=== PATIENT | female | born 1960 | race Caucasian/White ===

== ENCOUNTER → 2016-10-02 | Outpatient (CLI) | payer BC ==
[2016-10-02 06:40] LABS: BASOPHILS % 0.9 % (0.0-2.0); DIFFERENTIAL COMMENT 0; EOSINOPHILS % 2.1 % (0.0-5.0); HEMOGLOBIN. 13.7 g/dL (12.0-16.0); MEAN CORPUSCULAR HEMOGLOBIN 26.1 pg (28.0-32.0); MEAN CORPUSCULAR HGB CONC 33.5 g/dL (31.0-37.0); MEAN CORPUSCULAR VOLUME 77.8 fL (81.0-99.0); MEAN PLATELET VOLUME 7.8 fl (7.4-10.4); PLATELET 296 x1000/uL (130-400); RED BLOOD CELL COUNT 5.27 mill/uL (4.2-5.4); RED CELL DISTRIBUTION WIDTH 14.6 % (11.6-14.6)
[2016-10-02 06:48] LABS: CLARITY URINE CLEAR (CLEAR); COLOR URINE YELLOW (YELLOW); GLUCOSE URINE 3+ (NEGATIVE); KETONES URINE TRACE (NEGATIVE); LEUKOCYTE ESTERASE URINE 2+ (NEGATIVE); NITRITE URINE NEGATIVE (NEGATIVE); OCCULT BLOOD URINE NEGATIVE (NEGATIVE); PH URINE 6.5 (4.5-8.0); PROTEIN URINE TRACE (NEGATIVE); SPECIFIC GRAVITY URINE 1.023 (1.005-1.030); UROBILINOGEN URINE 0.2 E.U./dL (0.2-1.0)
[2016-10-02 07:20] LABS: SQUAMOUS EPITHELIAL CELL URINE FEW /lpf (RARE/1+)
[2016-10-02 07:21] LABS: RBC URINE 0-2 /hpf (0-2)
[2016-10-02 07:22] LABS: BACTERIA URINE 1+
[2016-10-02 07:24] LABS: CHLORIDE 100 mEq/L (98-107); INDEX HEMOLYSI 1 (1-3); INDEX ICTERIC 1 (1-4); INDEX LIPEMIC 1 (1-3)
[2016-10-02 07:46] LABS: ALANINE AMINOTRANSFERASE 35 IU/L (13-61); ALBUMIN 3.4 g/dL (3.4-5.0); ANION GAP 16; BILIRUBIN DIRECT < 0.1 mg/dL (0.0-0.2); CALCIUM 8.3 mg/dL (8.5-10.1); CARBON DIOXIDE 28 mEq/L (21-32); HDL CHOLESTEROL 48 mg/dL (40-59); LDL CHOLESTEROL 153 mg/dL (5-100); TRIGLYCERIDE 194 mg/dL (0-150); UREA NITROGEN BLOOD 8 mg/dL (7-21); eGFR > 60 mL/min (>60)
[2016-10-03 19:40] LABS: *CREATININE RANDOM URINE 57.1 mg/dL (Not Estab.); MICROALBUMIN RANDOM URINE 56.4 ug/mL (Not Estab.); MICROALBUMIN/CREATININE RATIO 98.8 mg/g creat (0.0-30.0)
== END | disposition home or self-care (01) ==
LOC: LAB 09:00
PROVIDERS: ATTEND Internal Medicine
DX: I10 Essential (primary) hypertension (principal); E78.5 Hyperlipidemia, unspecified; E11.9 Type 2 diabetes mellitus without complications; G47.33 Obstructive sleep apnea (adult) (pediatric); E66.9 Obesity, unspecified
CPT/HCPCS: 36415; 80053; 80061; 80076; 81001; 82043; 82248; 82570; 85025; 85651

== ENCOUNTER → 2016-10-21 | Outpatient (CLI) | payer BC | END | disposition home or self-care (01) | LOC: LAB 06:35 | PROVIDERS: ATTEND Internal Medicine | DX: E11.9 Type 2 diabetes mellitus without complications (principal) | CPT/HCPCS: 83036 ==

== ENCOUNTER → 2017-01-22 | Outpatient (CLI) | payer BC ==
[2017-01-22 06:57] LABS: CLARITY URINE CLEAR (CLEAR); COLOR URINE YELLOW (YELLOW); GLUCOSE URINE 3+ (NEGATIVE); KETONES URINE 1+ (NEGATIVE); LEUKOCYTE ESTERASE URINE 2+ (NEGATIVE); NITRITE URINE POSITIVE (NEGATIVE); OCCULT BLOOD URINE TRACE (NEGATIVE); PROTEIN URINE NEGATIVE (NEGATIVE); SPECIFIC GRAVITY URINE 1.022 (1.005-1.030); UROBILINOGEN URINE 0.2 E.U./dL (0.2-1.0)
[2017-01-22 07:43] LABS: CARBON DIOXIDE 27 mEq/L (21-32); CHLORIDE 100 mEq/L (98-107)
[2017-01-22 07:44] LABS: HDL CHOLESTEROL 42 mg/dL (40-59); LDL CHOLESTEROL 156 mg/dL (5-100)
[2017-01-23 13:07] LABS: MICROALBUMIN RANDOM URINE 48.5 ug/mL (Not Estab.); MICROALBUMIN/CREATININE RATIO 91.5 mg/g creat (0.0-30.0)
== END | disposition home or self-care (01) ==
LOC: LAB 06:24
PROVIDERS: ATTEND Internal Medicine
DX: I10 Essential (primary) hypertension (principal); E11.9 Type 2 diabetes mellitus without complications; E78.5 Hyperlipidemia, unspecified; R07.89 Other chest pain
CPT/HCPCS: 36415; 80053; 80061; 81001; 82043; 82270; 82570; 83036

== ENCOUNTER → 2017-07-06 | Outpatient (CLI) | payer BC | END | disposition home or self-care (01) | LOC: MAMMO 06:48 | PROVIDERS: ATTEND Internal Medicine | DX: Z12.31 Encounter for screening mammogram for malignant neoplasm of breast (principal) | CPT/HCPCS: G0202 ==

== ENCOUNTER → 2017-07-19 | Outpatient (CLI) | payer BC ==
[2017-07-19 08:03] LABS: KETONES URINE NEGATIVE (NEGATIVE); LEUKOCYTE ESTERASE URINE 1+ (NEGATIVE); NITRITE URINE POSITIVE (NEGATIVE); OCCULT BLOOD URINE NEGATIVE (NEGATIVE); PH URINE 6.5 (4.5-8.0); PROTEIN URINE 2+ (NEGATIVE); SPECIFIC GRAVITY URINE 1.021 (1.005-1.030); UROBILINOGEN URINE 0.2 E.U./dL (0.2-1.0)
[2017-07-19 08:04] LABS: CLARITY URINE HAZY (CLEAR)
[2017-07-19 08:17] LABS: BASOPHILS % 0.3 % (0.0-2.0); EOSINOPHILS % 1.3 % (0.0-5.0); HEMATOCRIT. 41.7 % (36.0-48.0); HEMOGLOBIN. 13.7 g/dL (12.0-16.0); MEAN CORPUSCULAR HEMOGLOBIN 25.2 pg (28.0-32.0); MEAN CORPUSCULAR VOLUME 76.6 fL (81.0-99.0); MEAN PLATELET VOLUME 8.4 fl (7.4-10.4); MONOCYTES % 5.2 % (2.0-8.0); NEUTROPHILS % 61.2 % (40.0-76.0); PLATELET 235 x1000/uL (130-400); RED BLOOD CELL COUNT 5.45 mill/uL (4.2-5.4); RED CELL DISTRIBUTION WIDTH 14.4 % (11.6-14.6)
[2017-07-19 08:23] LABS: CHLORIDE 102 mEq/L (98-107)
[2017-07-19 08:31] LABS: COLOR URINE YELLOW (YELLOW)
[2017-07-19 08:58] LABS: CARBON DIOXIDE 25 mEq/L (21-32); HDL CHOLESTEROL 36 mg/dL (40-59); LDL CHOLESTEROL 127 mg/dL (5-100); T4 FREE 1.37 ng/dL (0.76-1.46)
[2017-07-19 09:40] LABS: VITAMIN B12 SERUM 551 pg/mL (211-911)
[2017-07-21 13:11] LABS: MICROALBUMIN RANDOM URINE 500.1 ug/mL (Not Estab.)
== END | disposition home or self-care (01) ==
LOC: LAB 07:15
PROVIDERS: ATTEND Internal Medicine
DX: E11.65 Type 2 diabetes mellitus with hyperglycemia (principal); I10 Essential (primary) hypertension; E78.5 Hyperlipidemia, unspecified; G47.33 Obstructive sleep apnea (adult) (pediatric); M79.671 Pain in right foot; R10.9 Unspecified abdominal pain; E53.9 Vitamin B deficiency, unspecified; E55.9 Vitamin D deficiency, unspecified
CPT/HCPCS: 36415; 80053; 80061; 81001; 82043; 82306; 82570; 82607; 83036; 84439; 84443; 84481; 84550; 85025

== ENCOUNTER → 2018-04-07 | Outpatient (CLI) | payer BC ==
[2018-04-07 07:46] LABS: CLARITY URINE CLEAR (CLEAR); COLOR URINE YELLOW (YELLOW); KETONES URINE TRACE (NEGATIVE); LEUKOCYTE ESTERASE URINE TRACE (NEGATIVE); NITRITE URINE POSITIVE (NEGATIVE); OCCULT BLOOD URINE TRACE (NEGATIVE); PH URINE 5.5 (4.5-8.0); PROTEIN URINE 1+ (NEGATIVE); SPECIFIC GRAVITY URINE 1.017 (1.005-1.030); UROBILINOGEN URINE 0.2 E.U./dL (0.2-1.0)
[2018-04-07 07:48] LABS: CHLORIDE 101 mEq/L (98-107)
[2018-04-07 08:03] LABS: BASOPHILS % 0.7 % (0.0-2.0); EOSINOPHILS % 1.8 % (0.0-5.0); HEMATOCRIT. 41.2 % (36.0-48.0); HEMOGLOBIN. 13.8 g/dL (12.0-16.0); LYMPHOCYTES % 25.9 % (20.0-50.0); MEAN CORPUSCULAR HEMOGLOBIN 26.8 pg (28.0-32.0); MEAN CORPUSCULAR VOLUME 79.6 fL (81.0-99.0); MEAN PLATELET VOLUME 8.1 fl (7.4-10.4); MONOCYTES % 4.4 % (2.0-8.0); NEUTROPHILS % 67.2 % (40.0-76.0); PLATELET 287 x1000/uL (130-400); RED BLOOD CELL COUNT 5.17 mill/uL (4.2-5.4); RED CELL DISTRIBUTION WIDTH 14.3 % (11.6-14.6)
[2018-04-07 08:24] LABS: LDL CHOLESTEROL 157 mg/dL (5-100)
[2018-04-07 08:26] LABS: HDL CHOLESTEROL 38 mg/dL (40-59)
[2018-04-07 08:27] LABS: T4 FREE 1.29 ng/dL (0.76-1.46)
[2018-04-08 08:14] LABS: *CREATININE RANDOM URINE 78.9 mg/dL (Not Estab.); MICROALBUMIN RANDOM URINE 209.6 ug/mL (Not Estab.)
== END | disposition home or self-care (01) ==
LOC: LAB 06:59
PROVIDERS: ATTEND Internal Medicine
DX: E11.65 Type 2 diabetes mellitus with hyperglycemia (principal); R53.83 Other fatigue
CPT/HCPCS: 36415; 80053; 80061; 81003; 82043; 82270; 82570; 83036; 84439; 84443; 85025; 86038; 86430

== ENCOUNTER → 2018-10-04 | Outpatient (CLI) | payer BC ==
[2018-10-04 07:42] LABS: BASOPHILS % 0.9 % (0.0-2.0); EOSINOPHILS % 2.4 % (0.0-5.0); HEMATOCRIT. 42.1 % (36.0-48.0); HEMOGLOBIN. 13.8 g/dL (12.0-16.0); MEAN CORPUSCULAR HEMOGLOBIN 26.3 pg (28.0-32.0); MEAN PLATELET VOLUME 8.6 fl (7.4-10.4); MONOCYTES % 4.6 % (2.0-8.0); NEUTROPHILS % 70.1 % (40.0-76.0); PLATELET 282 x1000/uL (130-400); RED BLOOD CELL COUNT 5.26 mill/uL (4.2-5.4)
[2018-10-04 07:44] LABS: CHLORIDE 101 mEq/L (98-107)
[2018-10-04 07:51] LABS: LDL CHOLESTEROL 86 mg/dL (5-100)
[2018-10-04 07:53] LABS: CLARITY URINE CLEAR (CLEAR); COLOR URINE YELLOW (YELLOW); KETONES URINE 1+ (NEGATIVE); LEUKOCYTE ESTERASE URINE NEGATIVE (NEGATIVE); NITRITE URINE POSITIVE (NEGATIVE); OCCULT BLOOD URINE NEGATIVE (NEGATIVE); PROTEIN URINE TRACE (NEGATIVE); UROBILINOGEN URINE 0.2 E.U./dL (0.2-1.0)
[2018-10-04 07:53] LABS: HDL CHOLESTEROL 40 mg/dL (40-59); T4 FREE 1.32 ng/dL (0.76-1.46)
== END | disposition home or self-care (01) ==
LOC: LAB 07:04
PROVIDERS: ATTEND Internal Medicine
DX: E11.69 Type 2 diabetes mellitus with other specified complication (principal); I10 Essential (primary) hypertension; E78.2 Mixed hyperlipidemia
CPT/HCPCS: 36415; 80061; 83036; 84439; 84443

== ENCOUNTER → 2019-04-05 | Outpatient (CLI) | payer BC ==
[2019-04-05 07:39] LABS: CLARITY URINE CLEAR (CLEAR); COLOR URINE YELLOW (YELLOW); KETONES URINE TRACE (NEGATIVE); LEUKOCYTE ESTERASE URINE 1+ (NEGATIVE); NITRITE URINE NEGATIVE (NEGATIVE); OCCULT BLOOD URINE NEGATIVE (NEGATIVE); PROTEIN URINE 1+ (NEGATIVE); SPECIFIC GRAVITY URINE 1.019 (1.005-1.030); UROBILINOGEN URINE 0.2 E.U./dL (0.2-1.0)
[2019-04-05 07:44] LABS: BASOPHILS % 1.2 % (0.0-2.0); EOSINOPHILS % 1.6 % (0.0-5.0); HEMATOCRIT. 40.8 % (36.0-48.0); HEMOGLOBIN. 13.7 g/dL (12.0-16.0); LYMPHOCYTES % 21.5 % (20.0-50.0); MEAN CORPUSCULAR HEMOGLOBIN 26.7 pg (28.0-32.0); MEAN CORPUSCULAR VOLUME 79.5 fL (81.0-99.0); MEAN PLATELET VOLUME 8.4 fl (7.4-10.4); MONOCYTES % 4.2 % (2.0-8.0); NEUTROPHILS % 71.5 % (40.0-76.0); PLATELET 294 x1000/uL (130-400); RED BLOOD CELL COUNT 5.13 mill/uL (4.2-5.4)
[2019-04-05 07:51] LABS: CHLORIDE 102 mEq/L (98-107)
[2019-04-06 08:15] LABS: MICROALBUMIN RANDOM URINE 225.1 ug/mL (Not Estab.)
== END | disposition home or self-care (01) ==
LOC: LAB 07:10
PROVIDERS: ATTEND Internal Medicine
DX: E11.69 Type 2 diabetes mellitus with other specified complication (principal); R53.83 Other fatigue
CPT/HCPCS: 36415; 81003; 82043; 82570; 83036; 84443

== ENCOUNTER → 2019-12-27 | Outpatient (CLI) | payer BC ==
[2019-12-27 07:29] LABS: BASOPHILS % 0.6 % (0.0-2.0); EOSINOPHILS % 2.2 % (0.0-5.0); HEMATOCRIT. 41.4 % (36.0-48.0); HEMOGLOBIN. 13.7 g/dL (12.0-16.0); LYMPHOCYTES % 24.3 % (20.0-50.0); MEAN CORPUSCULAR HEMOGLOBIN 25.8 pg (28.0-32.0); MEAN CORPUSCULAR VOLUME 78.2 fL (81.0-99.0); MEAN PLATELET VOLUME 8.3 fl (7.4-10.4); NEUTROPHILS % 67.9 % (40.0-76.0); PLATELET 299 x1000/uL (130-400)
[2019-12-27 07:39] LABS: CHLORIDE 103 mEq/L (98-107)
[2019-12-27 07:48] LABS: LDL CHOLESTEROL 109 mg/dL (5-100)
[2019-12-27 07:50] LABS: HDL CHOLESTEROL 42 mg/dL (40-59)
[2019-12-27 07:56] LABS: CLARITY URINE CLEAR (CLEAR); COLOR URINE YELLOW (YELLOW); KETONES URINE 1+ (NEGATIVE); LEUKOCYTE ESTERASE URINE NEGATIVE (NEGATIVE); NITRITE URINE NEGATIVE (NEGATIVE); OCCULT BLOOD URINE NEGATIVE (NEGATIVE); PROTEIN URINE 1+ (NEGATIVE); SPECIFIC GRAVITY URINE 1.026 (1.005-1.030); UROBILINOGEN URINE 0.2 E.U./dL (0.2-1.0)
== END | disposition home or self-care (01) ==
LOC: LAB 06:59
PROVIDERS: ATTEND Internal Medicine
DX: I10 Essential (primary) hypertension (principal); E11.69 Type 2 diabetes mellitus with other specified complication; Z79.4 Long term (current) use of insulin
CPT/HCPCS: 36415; 80053; 80061; 81003; 82043; 82570; 83036; 84443; 85025

== ENCOUNTER → 2020-06-03 | Outpatient (CLI) | payer BC ==
[2020-06-03 08:00] LABS: CHLORIDE 102 mEq/L (98-107)
[2020-06-03 08:03] LABS: BASOPHILS % 0.5 % (0.0-2.0); EOSINOPHILS % 2.1 % (0.0-5.0); HEMATOCRIT. 40.2 % (36.0-48.0); HEMOGLOBIN. 13.6 g/dL (12.0-16.0); LYMPHOCYTES % 21.2 % (20.0-50.0); MEAN CORPUSCULAR HEMOGLOBIN 26.9 pg (28.0-32.0); MEAN CORPUSCULAR VOLUME 79.2 fL (81.0-99.0); MEAN PLATELET VOLUME 8.3 fl (7.4-10.4); MONOCYTES % 3.9 % (2.0-8.0); NEUTROPHILS % 72.3 % (40.0-76.0); PLATELET 300 x1000/uL (130-400); RED BLOOD CELL COUNT 5.07 mill/uL (4.2-5.4)
[2020-06-03 08:07] LABS: LDL CHOLESTEROL 88 mg/dL (5-100)
[2020-06-03 08:08] LABS: HDL CHOLESTEROL 44 mg/dL (40-59)
[2020-06-03 08:09] LABS: T4 FREE 1.21 ng/dL (0.76-1.46)
[2020-06-03 09:02] LABS: CLARITY URINE CLEAR (CLEAR); COLOR URINE YELLOW (YELLOW); KETONES URINE 1+ (NEGATIVE); LEUKOCYTE ESTERASE URINE NEGATIVE (NEGATIVE); NITRITE URINE NEGATIVE (NEGATIVE); OCCULT BLOOD URINE NEGATIVE (NEGATIVE); PH URINE 5.5 (4.5-8.0); PROTEIN URINE 1+ (NEGATIVE); SPECIFIC GRAVITY URINE 1.019 (1.005-1.030); UROBILINOGEN URINE 0.2 E.U./dL (0.2-1.0)
[2020-06-04 10:11] LABS: MICROALBUMIN RANDOM URINE 126.4 ug/mL (Not Estab.)
[2020-06-04 13:06] LABS: *CREATININE RANDOM URINE 79.9 mg/dL (Not Estab.)
== END | disposition home or self-care (01) ==
LOC: LAB 07:16
PROVIDERS: ATTEND Internal Medicine
DX: E11.9 Type 2 diabetes mellitus without complications (principal); I10 Essential (primary) hypertension; E78.5 Hyperlipidemia, unspecified
CPT/HCPCS: 36415; 80053; 80061; 81003; 82043; 82270; 82570; 83036; 84439; 84443; 85025; 86803

== ENCOUNTER → 2020-09-18 | Outpatient (CLI) | payer BC ==
[2020-09-18 17:19] LABS: BASOPHILS % 0.6 % (0.0-2.0); EOSINOPHILS % 2.6 % (0.0-5.0); HEMOGLOBIN. 13.5 g/dL (12.0-16.0); LYMPHOCYTES % 29.5 % (20.0-50.0); MEAN CORPUSCULAR HEMOGLOBIN 25.8 pg (28.0-32.0); MEAN CORPUSCULAR VOLUME 78.3 fL (81.0-99.0); MEAN PLATELET VOLUME 8.3 fl (7.4-10.4); MONOCYTES % 6.3 % (2.0-8.0); PLATELET 307 x1000/uL (130-400); RED BLOOD CELL COUNT 5.23 mill/uL (4.2-5.4); RED CELL DISTRIBUTION WIDTH 14.5 % (11.6-14.6)
[2020-09-18 17:43] LABS: CHLORIDE 102 mEq/L (98-107)
[2020-09-18 17:51] LABS: LDL CHOLESTEROL 107 mg/dL (5-100)
[2020-09-18 17:53] LABS: HDL CHOLESTEROL 42 mg/dL (40-59); T4 FREE 1.11 ng/dL (0.76-1.46)
== END | disposition home or self-care (01) ==
LOC: LAB 16:40
PROVIDERS: ATTEND Specialist
DX: E11.9 Type 2 diabetes mellitus without complications (principal); E78.5 Hyperlipidemia, unspecified; I11.9 Hypertensive heart disease without heart failure
CPT/HCPCS: 36415; 80053; 80061; 83036; 83880; 84439; 84443; 84481; 85025

== ENCOUNTER → 2020-09-19 | Outpatient (CLI) | payer BC ==
[~2020-09-19] MED LIST: REGADENOSON 0.4 MG/5 ML IV ONE
== END | disposition home or self-care (01) ==
LOC: NM 07:34
PROVIDERS: ATTEND Specialist
DX: I31.3 Pericardial effusion (noninflammatory) (principal); I10 Essential (primary) hypertension; R07.9 Chest pain, unspecified; I51.7 Cardiomegaly
CPT/HCPCS: 78452; 93306; A9500; J2785

== ENCOUNTER → 2021-04-08 | Outpatient (CLI) | payer BC ==
[2021-04-08 08:26] LABS: BASOPHILS % 0.6 % (0.0-2.0); EOSINOPHILS % 2.4 % (0.0-5.0); HEMATOCRIT. 41.4 % (36.0-48.0); HEMOGLOBIN. 13.5 g/dL (12.0-16.0); LYMPHOCYTES % 21.6 % (20.0-50.0); MEAN CORPUSCULAR HEMOGLOBIN 25.2 pg (28.0-32.0); MEAN CORPUSCULAR VOLUME 77.1 fL (81.0-99.0); MONOCYTES % 4.6 % (2.0-8.0); NEUTROPHILS % 70.8 % (40.0-76.0); PLATELET 375 x1000/uL (130-400); RED BLOOD CELL COUNT 5.37 mill/uL (4.2-5.4); RED CELL DISTRIBUTION WIDTH 15.1 % (11.6-14.6)
[2021-04-08 09:01] LABS: CHLORIDE 106 mEq/L (98-107)
[2021-04-08 09:08] LABS: LDL CHOLESTEROL 127 mg/dL (5-100)
[2021-04-08 09:10] LABS: HDL CHOLESTEROL 51 mg/dL (40-59); T4 FREE 1.28 ng/dL (0.76-1.46)
== END | disposition home or self-care (01) ==
LOC: LAB 08:01
PROVIDERS: ATTEND Specialist
DX: E11.9 Type 2 diabetes mellitus without complications (principal); I11.9 Hypertensive heart disease without heart failure; E78.2 Mixed hyperlipidemia
CPT/HCPCS: 36415; 80053; 80061; 83036; 83880; 84439; 84443; 84481; 85025

== ENCOUNTER → 2021-06-11 | Outpatient (CLI) | payer BC ==
[2021-06-11 08:47] LABS: CHLORIDE 104 mEq/L (98-107)
== END | disposition home or self-care (01) ==
LOC: LAB 08:08
PROVIDERS: ATTEND Specialist
DX: I10 Essential (primary) hypertension (principal); E11.9 Type 2 diabetes mellitus without complications; E78.2 Mixed hyperlipidemia
CPT/HCPCS: 36415; 80048

== ENCOUNTER → 2021-07-01 | Outpatient (CLI) | payer BC ==
[~2021-07-01] MED LIST changes: +IOHEXOL-350 100 ML BOTTLE ONE; -REGADENOSON 0.4 MG/5 ML IV ONE
== END | disposition home or self-care (01) ==
LOC: CT 08:10
PROVIDERS: ATTEND Specialist
DX: N20.0 Calculus of kidney (principal); K76.0 Fatty (change of) liver, not elsewhere classified; I10 Essential (primary) hypertension
CPT/HCPCS: 74175; Q9967; Z7610

== ENCOUNTER → 2021-07-22 | Outpatient (CLI) | payer BC | END | disposition home or self-care (01) | LOC: MAMMO 07:39 | PROVIDERS: ATTEND Obstetrics & Gynecology Obstetrics | DX: Z12.31 Encounter for screening mammogram for malignant neoplasm of breast (principal) | CPT/HCPCS: 77063; 77067 ==

== ENCOUNTER → 2021-11-11 | Outpatient (CLI) | payer BC ==
[2021-11-11 07:38] LABS: BASOPHILS % 0.6 % (0.0-2.0); EOSINOPHILS % 3.1 % (0.0-5.0); HEMATOCRIT. 38.6 % (36.0-48.0); HEMOGLOBIN. 12.2 g/dL (12.0-16.0); LYMPHOCYTES % 28.5 % (20.0-50.0); MEAN CORPUSCULAR HEMOGLOBIN 23.6 pg (28.0-32.0); MEAN CORPUSCULAR VOLUME 74.4 fL (81.0-99.0); MEAN PLATELET VOLUME 8.6 fl (7.4-10.4); MONOCYTES % 5.5 % (2.0-8.0); NEUTROPHILS % 62.3 % (40.0-76.0); PLATELET 276 x1000/uL (130-400); RED BLOOD CELL COUNT 5.18 mill/uL (4.2-5.4); RED CELL DISTRIBUTION WIDTH 15.6 % (11.6-14.6)
[2021-11-11 08:03] LABS: CHLORIDE 108 mEq/L (98-107)
[2021-11-11 08:14] LABS: HDL CHOLESTEROL 49 mg/dL (40-59); LDL CHOLESTEROL 103 mg/dL (5-100); T4 FREE 1.24 ng/dL (0.76-1.46)
== END | disposition home or self-care (01) ==
LOC: LAB 06:56
PROVIDERS: ATTEND Specialist
DX: I11.9 Hypertensive heart disease without heart failure (principal); E11.9 Type 2 diabetes mellitus without complications; I10 Essential (primary) hypertension; E78.5 Hyperlipidemia, unspecified
CPT/HCPCS: 36415; 80053; 80061; 83036; 83880; 84439; 84443; 84481; 85025

== ENCOUNTER → 2022-04-28 | Day surgery (SDC) | payer BC | END | disposition home or self-care (01) | LOC: CARD 07:31 | PROVIDERS: ATTEND Specialist | DX: I08.1 Rheumatic disorders of both mitral and tricuspid valves (principal); Z79.899 Other long term (current) drug therapy | CPT/HCPCS: 93306 ==

== ENCOUNTER → 2022-08-13 | Outpatient (CLI) | payer BC ==
[2022-08-13 07:56] LABS: CLARITY URINE CLEAR (CLEAR); COLOR URINE YELLOW (YELLOW); KETONES URINE NEGATIVE (NEGATIVE); LEUKOCYTE ESTERASE URINE TRACE (NEGATIVE); NITRITE URINE NEGATIVE (NEGATIVE); OCCULT BLOOD URINE NEGATIVE (NEGATIVE); PROTEIN URINE NEGATIVE (NEGATIVE); SPECIFIC GRAVITY URINE 1.024 (1.005-1.030); UROBILINOGEN URINE 0.2 E.U./dL (0.2-1.0)
[2022-08-13 08:37] LABS: CHLORIDE 106 mEq/L (98-107)
[2022-08-14 08:09] LABS: *CREATININE RANDOM URINE 114.7 mg/dL (Not Estab.); MICROALBUMIN RANDOM URINE 29.7 ug/mL (Not Estab.)
== END | disposition home or self-care (01) ==
LOC: LAB 07:20
PROVIDERS: ATTEND Internal Medicine
DX: Z11.59 Encounter for screening for other viral diseases (principal); E11.69 Type 2 diabetes mellitus with other specified complication
CPT/HCPCS: 36415; 80053; 81003; 82043; 82570; 83036; 86803

== ENCOUNTER → 2022-10-07 | Outpatient (CLI) | payer BC ==
[2022-10-07 07:48] LABS: BASOPHILS % 0.9 % (0.0-2.0); EOSINOPHILS % 2.6 % (0.0-5.0); HEMATOCRIT. 36.5 % (36.0-48.0); HEMOGLOBIN. 12.1 g/dL (12.0-16.0); LYMPHOCYTES % 24.6 % (20.0-50.0); MEAN CORPUSCULAR HEMOGLOBIN 24.4 pg (28.0-32.0); MEAN CORPUSCULAR VOLUME 73.7 fL (81.0-99.0); MEAN PLATELET VOLUME 7.9 fl (7.4-10.4); NEUTROPHILS % 66.9 % (40.0-76.0); PLATELET 326 x1000/uL (130-400); RED BLOOD CELL COUNT 4.95 mill/uL (4.2-5.4); RED CELL DISTRIBUTION WIDTH 15.7 % (11.6-14.6)
[2022-10-07 08:13] LABS: CHLORIDE 106 mEq/L (98-107)
[2022-10-07 19:23] LABS: FOLIC ACID (FOLATE) SERUM 15.6 ng/mL (>5.38)
== END | disposition home or self-care (01) ==
LOC: LAB 07:16
PROVIDERS: ATTEND Internal Medicine
DX: R20.0 Anesthesia of skin (principal)
CPT/HCPCS: 36415; 80048; 82607; 82746; 84443; 85025; 86038

== ENCOUNTER → 2022-12-16 | Outpatient (CLI) | payer BC ==
[2022-12-16 07:35] LABS: CHLORIDE 108 mEq/L (98-107)
== END | disposition home or self-care (01) ==
LOC: LAB 06:52
PROVIDERS: ATTEND Specialist
DX: I10 Essential (primary) hypertension (principal); E11.9 Type 2 diabetes mellitus without complications; E78.5 Hyperlipidemia, unspecified
CPT/HCPCS: 36415; 80053

== ENCOUNTER → 2023-05-21 | Outpatient (CLI) | payer BC ==
[2023-05-21 10:24] LABS: CHLORIDE 106 mEq/L (98-107); INDEX HEMOLYSI 1 (1-3); INDEX ICTERIC 1 (1-4); INDEX LIPEMIC 1 (1-3); POTASSIUM 3.6 mEq/L (3.5-5.1); SODIUM 140 mEq/L (136-145)
[2023-05-21 10:35] LABS: ALANINE AMINOTRANSFERASE 14 IU/L (13-61); ALBUMIN 3.5 g/dL (3.4-5.0); ASPARTATE AMINOTRANSFERASE 8 IU/L (15-37); BILIRUBIN TOTAL 0.4 mg/dL (0.1-1.0); CALCIUM 8.3 mg/dL (8.5-10.1); CARBON DIOXIDE 29 mEq/L (21-32); CREATININE 0.4 mg/dL (0.6-1.3); GLUCOSE 162 mg/dL (70-105); PROTEIN TOTAL 7.9 g/dL (6.0-8.3); UREA NITROGEN BLOOD 13 mg/dL (7-21)
[2023-05-22 13:07] LABS: *CREATININE RANDOM URINE 69.4 mg/dL (Not Estab.); MICROALBUMIN RANDOM URINE 24.4 ug/mL (Not Estab.)
== END | disposition home or self-care (01) ==
LOC: LAB 07:06
PROVIDERS: ATTEND Internal Medicine
DX: Z11.59 Encounter for screening for other viral diseases (principal); E11.69 Type 2 diabetes mellitus with other specified complication
CPT/HCPCS: 36415; 80053; 82043; 82570; 83036; 86803

== ENCOUNTER → 2023-11-17 | Outpatient (CLI) | payer BC ==
[2023-11-17 08:38] LABS: CARBON DIOXIDE 27 mEq/L (21-32); CHLORIDE 104 mEq/L (98-107); POTASSIUM 4.3 mEq/L (3.5-5.1); SODIUM 140 mEq/L (136-145)
[2023-11-17 08:39] LABS: CALCIUM 8.8 mg/dL (8.7-10.4)
[2023-11-17 08:43] LABS: CREATININE 0.7 mg/dL (0.6-1.0); GLUCOSE 141 mg/dL (70-105)
[2023-11-17 08:44] LABS: LDL CHOLESTEROL 122 mg/dL (5-100); TRIGLYCERIDE 145 mg/dL (0-150); UREA NITROGEN BLOOD 14 mg/dL (9-23)
[2023-11-17 08:45] LABS: ALANINE AMINOTRANSFERASE 10 IU/L (10-49); ALBUMIN 4.8 g/dL (3.2-4.8); ASPARTATE AMINOTRANSFERASE 12 IU/L (<34)
[2023-11-17 08:46] LABS: BILIRUBIN TOTAL 0.5 mg/dL (0.1-1.0); CHOLESTEROL 172 mg/dL (<200); HDL CHOLESTEROL 49 mg/dL (>65); PROTEIN TOTAL 7.9 g/dL (6.0-8.3)
[2023-11-17 08:50] LABS: T4 FREE 1.38 ng/dL (0.89-1.76); THYROID STIMULATING HORMONE 1.19 uIU/mL (0.55-4.78)
[2023-11-17 09:12] LABS: BASOPHILS % 0.5 % (0.0-2.0); DIFFERENTIAL COMMENT 0; EOSINOPHILS % 1.5 % (0.0-5.0); HEMATOCRIT. 39.8 % (36.0-48.0); LYMPHOCYTES % 13.1 % (20.0-50.0); MEAN CORPUSCULAR HEMOGLOBIN 25.5 pg (28.0-32.0); MEAN CORPUSCULAR HGB CONC 32.6 g/dL (31.0-37.0); MEAN CORPUSCULAR VOLUME 78.1 fL (81.0-99.0); MEAN PLATELET VOLUME 8.6 fl (7.4-10.4); MONOCYTES % 4.3 % (2.0-8.0); NEUTROPHILS % 80.6 % (40.0-76.0); PLATELET 314 x1000/uL (130-400); RED CELL DISTRIBUTION WIDTH 15.1 % (11.6-14.6); WHITE BLOOD COUNT 13.2 x1000/uL (4.5-11.0)
[2023-11-18 08:50] LABS: CLARITY URINE CLEAR (CLEAR); COLOR URINE YELLOW (YELLOW); GLUCOSE URINE 3+ (NEGATIVE); KETONES URINE NEGATIVE (NEGATIVE); LEUKOCYTE ESTERASE URINE NEGATIVE (NEGATIVE); NITRITE URINE NEGATIVE (NEGATIVE); OCCULT BLOOD URINE NEGATIVE (NEGATIVE); PROTEIN URINE NEGATIVE (NEGATIVE); SPECIFIC GRAVITY URINE 1.023 (1.005-1.030); UROBILINOGEN URINE 0.2 E.U./dL (0.2-1.0)
[2023-11-18 09:09] LABS: SQUAMOUS EPITHELIAL CELL URINE RARE /lpf (RARE/1+)
[2023-11-18 09:10] LABS: WBC URINE 0-2 /hpf (0-2)
[2023-11-18 09:11] LABS: BACTERIA URINE TRACE; RBC URINE 0-2 /hpf (0-2)
== END | disposition home or self-care (01) ==
LOC: LAB 07:34
PROVIDERS: ATTEND Specialist
DX: E11.9 Type 2 diabetes mellitus without complications (principal); E78.5 Hyperlipidemia, unspecified; I10 Essential (primary) hypertension
CPT/HCPCS: 36415; 80053; 80061; 82306; 83036; 83735; 83880; 84439; 84443; 84481; 85025

== ENCOUNTER → 2024-06-13 | Outpatient (CLI) | payer BC ==
[2024-06-13 08:16] LABS: TRIGLYCERIDE 104 mg/dL (0-150)
[2024-06-13 08:17] LABS: LDL CHOLESTEROL 93 mg/dL (5-100)
[2024-06-13 08:18] LABS: CHOLESTEROL 154 mg/dL (<200); HDL CHOLESTEROL 46 mg/dL (>65)
[2024-06-13 08:22] LABS: T4 FREE 1.56 ng/dL (0.89-1.76); THYROID STIMULATING HORMONE 1.17 uIU/mL (0.55-4.78)
[2024-06-13 08:25] LABS: BASOPHILS % 1.2 % (0.0-2.0); DIFFERENTIAL COMMENT 0; EOSINOPHILS % 2.6 % (0.0-5.0); HEMATOCRIT. 40.9 % (36.0-48.0); HEMOGLOBIN. 13.2 g/dL (12.0-16.0); LYMPHOCYTES % 18.5 % (20.0-50.0); MEAN CORPUSCULAR HEMOGLOBIN 24.9 pg (28.0-32.0); MEAN CORPUSCULAR HGB CONC 32.2 g/dL (31.0-37.0); MEAN CORPUSCULAR VOLUME 77.2 fL (81.0-99.0); MEAN PLATELET VOLUME 8.6 fl (7.4-10.4); MONOCYTES % 4.6 % (2.0-8.0); NEUTROPHILS % 73.1 % (40.0-76.0); PLATELET 344 x1000/uL (130-400); RED CELL DISTRIBUTION WIDTH 15.9 % (11.6-14.6); WHITE BLOOD COUNT 10.2 x1000/uL (4.5-11.0)
[2024-06-13 08:44] LABS: DIGOXIN < 0.1 ng/mL (0.8-2.0)
== END | disposition home or self-care (01) ==
LOC: LAB 07:08
PROVIDERS: ATTEND Specialist
DX: E78.5 Hyperlipidemia, unspecified (principal); E11.9 Type 2 diabetes mellitus without complications; I10 Essential (primary) hypertension
CPT/HCPCS: 36415; 80061; 80162; 82306; 83735; 83880; 84439; 84443; 84481; 85025

== ENCOUNTER → 2024-06-13 | Outpatient (CLI) | payer BC ==
[2024-06-13 08:15] LABS: CHLORIDE 104 mEq/L (98-107); POTASSIUM 4.7 mEq/L (3.5-5.1); SODIUM 140 mEq/L (136-145)
[2024-06-13 08:16] LABS: CALCIUM 9.8 mg/dL (8.7-10.4); CARBON DIOXIDE 27 mEq/L (21-32)
[2024-06-13 08:21] LABS: CREATININE 0.8 mg/dL (0.6-1.0); GLUCOSE 176 mg/dL (70-105); UREA NITROGEN BLOOD 15 mg/dL (9-23)
[2024-06-13 08:23] LABS: ALANINE AMINOTRANSFERASE 10 IU/L (10-49); ALBUMIN 4.5 g/dL (3.2-4.8); ASPARTATE AMINOTRANSFERASE 11 IU/L (<34); BILIRUBIN TOTAL 0.5 mg/dL (0.1-1.0); PROTEIN TOTAL 7.8 g/dL (6.0-8.3)
[2024-06-14 13:10] LABS: MICROALBUMIN RANDOM URINE 4.4 ug/mL (Not Estab.)
== END | disposition home or self-care (01) ==
LOC: LAB 07:15
PROVIDERS: ATTEND Internal Medicine
DX: Z11.59 Encounter for screening for other viral diseases (principal); E11.69 Type 2 diabetes mellitus with other specified complication
CPT/HCPCS: 36415; 80053; 82043; 82570; 83036; 86803

== ENCOUNTER → 2025-02-28 | Outpatient (CLI) | payer BC ==
[2025-02-28 07:36] LABS: BASOPHILS % 0.8 % (0.0-2.0); EOSINOPHILS % 3.3 % (0.0-5.0); HEMATOCRIT. 43.7 % (36.0-48.0); HEMOGLOBIN. 13.9 g/dL (12.0-16.0); LYMPHOCYTES % 19.8 % (20.0-50.0); MEAN PLATELET VOLUME 8.5 fl (7.4-10.4); MONOCYTES % 4.3 % (2.0-8.0); NEUTROPHILS % 71.8 % (40.0-76.0); PLATELET 319 x1000/uL (130-400); RED BLOOD CELL COUNT 5.72 mill/uL (4.2-5.4); RED CELL DISTRIBUTION WIDTH 17.0 % (11.6-14.6)
[2025-02-28 07:57] LABS: CREATININE 0.8 mg/dL (0.6-1.0); TRIGLYCERIDE 185 mg/dL (0-150); UREA NITROGEN BLOOD 17 mg/dL (9-23)
[2025-02-28 07:58] LABS: LDL CHOLESTEROL 146 mg/dL (5-100)
[2025-02-28 07:59] LABS: ASPARTATE AMINOTRANSFERASE 13 IU/L (<34); BILIRUBIN TOTAL 0.5 mg/dL (0.1-1.0)
[2025-02-28 08:00] LABS: PROTEIN TOTAL 8.0 g/dL (6.0-8.3)
[2025-02-28 08:01] LABS: T4 FREE 1.40 ng/dL (0.89-1.76)
== END | disposition home or self-care (01) ==
LOC: LAB 07:10
PROVIDERS: ATTEND Specialist
DX: I11.9 Hypertensive heart disease without heart failure (principal); E11.69 Type 2 diabetes mellitus with other specified complication; E78.2 Mixed hyperlipidemia
CPT/HCPCS: 36415; 80053; 80061; 82306; 83036; 83735; 83880; 84439; 84443; 84481; 85025

== ENCOUNTER → 2025-03-02 | Outpatient (CLI) | payer BC | END | disposition home or self-care (01) | LOC: MAMMO 07:36 | PROVIDERS: ATTEND Internal Medicine | DX: Z12.31 Encounter for screening mammogram for malignant neoplasm of breast (principal); I07.1 Rheumatic tricuspid insufficiency; R92.323 Mammographic fibroglandular density, bilateral breasts; Z78.0 Asymptomatic menopausal state | CPT/HCPCS: 77063; 77067; 77080; 93306 ==

== ENCOUNTER → 2025-07-17 | Outpatient (CLI) | payer BC ==
[2025-07-17 08:38] LABS: TRIGLYCERIDE 271 mg/dL (0-150)
[2025-07-17 08:39] LABS: LDL CHOLESTEROL 151 mg/dL (5-100)
[2025-07-17 08:42] LABS: T4 FREE 1.38 ng/dL (0.89-1.76)
== END | disposition home or self-care (01) ==
LOC: LAB 07:17
PROVIDERS: ATTEND Specialist
DX: E78.1 Pure hyperglyceridemia (principal); E78.5 Hyperlipidemia, unspecified; E11.9 Type 2 diabetes mellitus without complications
CPT/HCPCS: 36415; 80061; 83695; 83735; 83880; 84439; 84443; 84481

== ENCOUNTER → 2025-07-17 | Outpatient (CLI) | payer BC ==
[2025-07-17 08:21] LABS: BASOPHILS % 0.7 % (0.0-2.0); EOSINOPHILS % 3.5 % (0.0-5.0); HEMATOCRIT. 42.1 % (36.0-48.0); HEMOGLOBIN. 13.5 g/dL (12.0-16.0); LYMPHOCYTES % 22.9 % (20.0-50.0); MEAN PLATELET VOLUME 8.5 fl (7.4-10.4); MONOCYTES % 5.2 % (2.0-8.0); NEUTROPHILS % 67.7 % (40.0-76.0); PLATELET 334 x1000/uL (130-400); RED BLOOD CELL COUNT 5.40 mill/uL (4.2-5.4); RED CELL DISTRIBUTION WIDTH 14.8 % (11.6-14.6)
[2025-07-17 08:37] LABS: CREATININE 0.8 mg/dL (0.6-1.0)
[2025-07-17 08:38] LABS: PROTEIN TOTAL 7.4 g/dL (6.0-8.3); UREA NITROGEN BLOOD 10 mg/dL (9-23)
[2025-07-17 08:39] LABS: ASPARTATE AMINOTRANSFERASE 11 IU/L (<34)
[2025-07-17 08:40] LABS: BILIRUBIN TOTAL 0.5 mg/dL (0.1-1.0)
[2025-07-18 14:10] LABS: *CREATININE RANDOM URINE 166.4 mg/dL (Not Estab.); MICROALBUMIN RANDOM URINE 34.2 ug/mL (Not Estab.); MICROALBUMIN/CREATININE RATIO 21.0 mg/g creat (0-29)
== END | disposition home or self-care (01) ==
LOC: LAB 07:01
PROVIDERS: ATTEND Internal Medicine
DX: E11.69 Type 2 diabetes mellitus with other specified complication (principal)
CPT/HCPCS: 36415; 80053; 82043; 82570; 83036; 85025; 86803